=== PATIENT | female | born 1985 | race Hispanic/Latino ===

== ENCOUNTER 2021-06-05 09:35 | Emergency (ER) | payer OTHER ==
[~2021-06-05] VITALS: Ht 160 cm; Wt 76.7 kg
--- OUTSIDE RECORDS SUMMARY | 2021-06-05 11:56 | XMS ---
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 E.D. VISIT COUNT (12 MO.) [address] TOTAL 4 NOTE: Visits indicate total known visits. ED/UCC VISIT TRACKING (12 MO.) 06/05/2021 09:38 [facility] [place] TYPE: Emergency COMPLAINT: - NUMBNESS/PAIN IN HANDS, L FLANK PAIN, DIZZINESS 06/01/2021 10:04 [facility] [place] TYPE: Emergency DIAGNOSES: - hand numbness - Paresthesia of skin - Encounter for supervision of normal , unspecified, unspecified trimester 10/01/2020 20:32 [facility] [place] TYPE: Emergency DIAGNOSES: - COVID-19 - cough,back pain,chills,fever 06/15/2020 14:14 [facility] [place] TYPE: Emergency DIAGNOSES: - Headache, unspecified - FALL DIZZY HEADACHE - Unspecified injury of head, initial encounter INPATIENT VISIT TRACKING (12 MO.) No inpatient visits to display in this time frame [email or web address]
[2021-06-05] MEDS ORDERED: K-TAB ER20 MEQ PO (12:59)
[2021-06-05] MEDS ORDERED: NASAL DECONGEST30 MG PO (12:59)
--- NOTE | 2021-06-05 13:16 | EKG ---
[facility] [address] [place], [place] [address] Signed Normal sinus rhythm Nonspecific T wave abnormality Abnormal ECG No previous ECGs available Confirmed by ELIAN PRESLEY MD ([id number]) on 06/05/2021 1:16:16 PM Electronically Signed By: ELIAN PRESLEY MD 06/05/21 1316 PATIENT NAME: ZEE PEREZ Electrocardiogram DATE OF : 81 PHYSICIAN: ELIAN PRESLEY MD REPORT #: [id number] REPORT IS CONFIDENTIAL AND NOT TO BE RELEASED WITHOUT AUTHORIZATION
== END 2021-06-05 13:40 | disposition home or self-care (01) ==
LOC: ED 09:35
DX: H83.03 Labyrinthitis, bilateral (principal); E87.6 Hypokalemia; J06.9 Acute upper respiratory infection, unspecified
CPT/HCPCS: 36415; 80053; 81001; 83735; 84484; 85025; 93005; 93010; 96374; 99284-25; A9270; J1100; J3480; J7030